=== PATIENT | female | born 2000 | race Caucasian/White ===

== ENCOUNTER 2022-06-03 23:41 | Emergency (ER) | payer OTHER ==
[~2022-06-03] VITALS: Ht 157.5 cm; Wt 63.0 kg
[2022-06-03 23:50] VITALS: BP 134/70
--- NOTE | 2022-06-03 23:53 | NUR ---
TO LOBBY A/W BED AMBULATORY
--- NOTE | 2022-06-04 00:35 | NUR ---
PT TAKEN TO BED 3
[2022-06-04 00:48] LABS: APPEARANCE,URINE CLOUDY (CLEAR); BILIRUBIN,URINE NEGATIVE (NEGATIVE); BLOOD, URINE NEGATIVE (NEGATIVE); COLOR,URINE YELLOW (YELLOW); LEUKOCYTE ESTERASE ,URINE TRACE (NEGATIVE); NITRITE, URINE NEGATIVE (NEGATIVE); UGLUCOSE NEGATIVE (NEGATIVE)
[2022-06-04 00:49] LABS: BASOPHILS % (AUTO) 0.2 % (0.0-2.0); EOSINOPHILS # (AUTO) 0.1 K/uL (0-0.4); HEMATOCRIT 38.7 % (36-48); HEMOGLOBIN 13.1 g/dL (12.0-16.0); LYMPHOCYTES # (AUTO) 1.6 K/uL (2.5-16.5); LYMPHOCYTES % (AUTO) 13.3 % (20.5-51.1); MEAN CORPUSCULAR HEMOGLOBIN 32 pg (27-31); MEAN CORPUSCULAR HGB CONC 34 g/dL (33-37); MEAN CORPUSCULAR VOLUME 93.1 fL (80-94); MONOCYTES # (AUTO) 0.8 K/uL (0.8-1.0); MONOCYTES % (AUTO) 6.3 % (1.7-9.3); NEUTROPHILS # (AUTO) 9.8 K/uL (1.8-7.7); NEUTROPHILS % (AUTO) 79.2 % (42.2-75.2); PLATELET COUNT (AUTO) 217 K/uL (140-450); RED BLOOD CELL COUNT(AUTO) 4.16 MIL/uL (4.20-5.40); RED CELL DISTRIBUTION WIDTH 13.3 % (11.6-13.7); WHITE BLOOD COUNT (AUTO) 12.3 K/uL (4.8-10.8)
--- NOTE | 2022-06-04 00:53 | NUR ---
Patient lying in bed, A/Ox4, chest rise and fall symmetrical, no c/o pain or s/s of distress, on monitor.
[2022-06-04 00:59] LABS: RBC,URINE 0-5 /HPF (0-5); WBC,URINE 0-5 /HPF (0-5)
--- NOTE | 2022-06-04 00:59 | NUR ---
Dr. Paul examining patient.
[2022-06-04 01:17] LABS: ALBUMIN 3.9 g/dL (3.4-5.0); ANION GAP 13.2 (8-16); CARBON DIOXIDE 28.5 mmol/L (21-32); CREATININE 0.8 mg/dL (0.6-1.3); POTASSIUM 3.7 mmol/L (3.5-5.1); TOTAL BILIRUBIN 0.5 mg/dL (0.0-1.0)
--- NOTE | 2022-06-04 02:55 | NUR ---
Patient lying in bed, A/Ox4, chest rise and fall symmetrical, no s/s of distress, on monitor.
[2022-06-04] MEDS ORDERED: ALUMINUM HYD/MAG/SIMETHICONE 30 ML UDC PO ONE (03:05)
[2022-06-04] MEDS ORDERED: ONDANSETRON 4 MG ODT PO ONE (03:05)
[2022-06-04] MEDS ORDERED: FAMOTIDINE 20 MG TAB PO ONE (03:05)
[2022-06-04] MEDS ORDERED: CEPH-588 PO (03:21)
[2022-06-04] MEDS ORDERED: SUCR1TAB35 PO (03:21)
[2022-06-04] MEDS ORDERED: FAMO-90 PO (03:21)
--- NOTE | 2022-06-04 03:31 | NUR ---
Patient lying in bed, alert, chest rise and fall symmetrical, no c/o pain or s/s of distress, on monitor.
[2022-06-04 03:40] VITALS: BP 124/68
== END 2022-06-04 03:41 | disposition home or self-care (01) ==
LOC: MED 23:41
DX: R10.30 Lower abdominal pain, unspecified (principal); R11.0 Nausea; Z79.899 Other long term (current) drug therapy
CPT/HCPCS: 36415; 76705; 80053; 81001; 81025; 83690; 85025; 87086; 99284; Q0092; Q0162

== ENCOUNTER 2022-08-28 15:35 | Emergency (ER) | payer OTHER ==
[~2022-08-28] VITALS: Ht 157.5 cm; Wt 64.9 kg
[~2022-08-28 15:35] MED LIST: CEPH-588 PO; FAMO-90 PO; SUCR1TAB35 PO
[2022-08-28 15:41] VITALS: BP 118/75
[2022-08-28] MEDS ORDERED: DEXAMETHASONE 10 MG/ML VIAL IM ONE (16:00)
[2022-08-28] MEDS ORDERED: IBUPROFEN 600 MG TAB PO ONE (16:00)
--- NOTE | 2022-08-28 16:38 | NUR ---
21/F PRESENTS TO ED WITH C/O SORE THROAT X3 DAYS, PATIENT REPORTS WAKING UP WITH THE PAIN, DENIES TAKING MEDS OR RECENT SICK CONTACTS. PATIENT DENIES N/V/D, FEVERS, COUGH.
[2022-08-28] MEDS ORDERED: IBUP-2213 PO (16:40)
[2022-08-28] MEDS ORDERED: AMOX1TAB8 PO (16:40)
[2022-08-28] MEDS ORDERED: BENZ-300 PO (16:40)
--- NOTE | 2022-08-28 16:47 | NUR ---
Patient discharged with v/s stable. Written and verbal after care instructions given and explained. Patient alert, oriented and verbalized understanding of instructions. Ambulatory with steady gait. All questions addressed prior to discharge. ID band removed. Patient advised to follow up with PMD. Rx of MOTRIN, CEPACOL LOZENGE, AMOX/CLAV [id number] given. Patient educated on indication of medication including possible reaction and side effects. Opportunity to ask questions provided and answered.
== END 2022-08-28 16:46 | disposition home or self-care (01) ==
LOC: MED 15:35
DX: J02.8 Acute pharyngitis due to other specified organisms (principal); B97.89 Other viral agents as the cause of diseases classified elsewhere
CPT/HCPCS: 96372; 99283; J1100

== ENCOUNTER 2023-01-10 17:55 | Emergency (ER) | payer OTHER ==
[~2023-01-10] VITALS: Ht 157.5 cm; Wt 63.5 kg
[~2023-01-10 17:55] MED LIST changes: +AMOX1TAB8 PO; +BENZ-300 PO; +IBUP-2213 PO
[2023-01-10 18:06] VITALS: BP 104/54; PULSE 94; RESP 17; TEMP 97.8; O2SAT 98
[2023-01-10] MEDS ORDERED: IBUP-2213 PO (18:28)
[2023-01-10] MEDS ORDERED: AMOX1TAB8 PO (18:28)
[2023-01-10] MEDS ORDERED: BENZ-300 PO (18:28)
[2023-01-10 18:34] VITALS: BP 104/54; PULSE 94; RESP 17; TEMP 97.8; O2SAT 98
== END 2023-01-10 18:34 | disposition home or self-care (01) ==
LOC: MED 17:55
DX: J02.8 Acute pharyngitis due to other specified organisms (principal); B96.89 Other specified bacterial agents as the cause of diseases classified elsewhere; Z79.899 Other long term (current) drug therapy
CPT/HCPCS: 87081; 99283

== ENCOUNTER 2023-01-19 21:17 | Emergency (ER) | payer OTHER ==
[~2023-01-19] VITALS: Ht 157.5 cm; Wt 64.9 kg
[2023-01-19 21:46] VITALS: BP 110/68; PULSE 76; RESP 20; TEMP 98; O2SAT 98
[2023-01-19] MEDS ORDERED: KETOROLAC 30 MG/ML VIAL IM ONE (22:10)
[2023-01-19] MEDS ORDERED: ONDANSETRON 4 MG ODT PO ONE (22:15)
[2023-01-19] MEDS ORDERED: ONDA-188 PO (22:19)
[2023-01-19] MEDS ORDERED: PRED20TA5 PO (22:19)
[2023-01-19] MEDS ORDERED: SUD30 PO (22:19)
[2023-01-19] MEDS ORDERED: PROM118S5 PO (22:19)
[2023-01-19] MEDS ORDERED: LIDO15SO4 PO (22:19)
== END 2023-01-19 22:37 | disposition home or self-care (01) ==
LOC: MED 21:17
DX: J06.9 Acute upper respiratory infection, unspecified (principal); J03.90 Acute tonsillitis, unspecified; Z79.899 Other long term (current) drug therapy
CPT/HCPCS: 96372; 99283; J1885; Q0162

== ENCOUNTER 2023-06-02 19:04 | Emergency (ER) | payer OTHER ==
[~2023-06-02] VITALS: Ht 157.5 cm; Wt 64.9 kg
[~2023-06-02 19:04] MED LIST changes: +LIDO15SO4 PO; +ONDA-188 PO; +PRED20TA5 PO; +PROM118S5 PO; +SUD30 PO
[2023-06-02 19:21] VITALS: BP 96/62; PULSE 65; RESP 20; TEMP 98.7; O2SAT 98
[2023-06-02 20:22] LABS: BASOPHILS % (AUTO) 0.2 % (0.0-2.0); EOSINOPHILS # (AUTO) 0.1 K/uL (0-0.4); HEMATOCRIT 40.8 % (36-48); HEMOGLOBIN 14.2 g/dL (12.0-16.0); LYMPHOCYTES # (AUTO) 1.3 K/uL (2.5-16.5); LYMPHOCYTES % (AUTO) 20.1 % (20.5-51.1); MEAN CORPUSCULAR HEMOGLOBIN 32 pg (27-31); MEAN CORPUSCULAR HGB CONC 35 g/dL (33-37); MEAN CORPUSCULAR VOLUME 90.5 fL (80-94); MONOCYTES # (AUTO) 0.6 K/uL (0.8-1.0); MONOCYTES % (AUTO) 9.2 % (1.7-9.3); NEUTROPHILS # (AUTO) 4.5 K/uL (1.8-7.7); NEUTROPHILS % (AUTO) 69.5 % (42.2-75.2); PLATELET COUNT (AUTO) 227 K/uL (140-450); RED BLOOD CELL COUNT(AUTO) 4.51 MIL/uL (4.20-5.40); RED CELL DISTRIBUTION WIDTH 12.3 % (11.6-13.7); WHITE BLOOD COUNT (AUTO) 6.5 K/uL (4.8-10.8)
[2023-06-02 20:26] LABS: APPEARANCE,URINE CLEAR (CLEAR); BILIRUBIN,URINE NEGATIVE (NEGATIVE); BLOOD, URINE 1+ (NEGATIVE); COLOR,URINE YELLOW (YELLOW); LEUKOCYTE ESTERASE ,URINE TRACE (NEGATIVE); NITRITE, URINE NEGATIVE (NEGATIVE); PROTEIN,URINE NEGATIVE (NEGATIVE); UGLUCOSE NEGATIVE (NEGATIVE); UROBILINOGEN,URINE 0.2 EU/dL (0.2 - 1)
[2023-06-02 20:38] LABS: BACTERIA,URINE FEW /HPF (None Seen); SQUAMOUS EPITHELIAL CELL,UR 4-10 (MOD) /LPF (0-3 (FEW))
[2023-06-02 20:53] LABS: ALBUMIN 4.1 g/dL (3.4-5.0); ANION GAP 13.9 (8-16); CREATININE 0.7 mg/dL (0.6-1.3); POTASSIUM 4.9 mmol/L (3.5-5.1); TOTAL BILIRUBIN 0.5 mg/dL (0.0-1.0)
[2023-06-02] MEDS ORDERED: KETOROLAC 30 MG/ML VIAL IM ONE (22:50)
[2023-06-02] MEDS ORDERED: PHENAZOPYRIDINE 100 MG TAB PO ONE (22:50)
[2023-06-03] MEDS ORDERED: NAPR-54 PO (04:43)
[2023-06-03] MEDS ORDERED: CEPH-588 PO (04:43)
[2023-06-03 04:53] VITALS: BP 123/72; PULSE 74; RESP 20; TEMP 98.7; O2SAT 98
== END 2023-06-03 04:53 | disposition home or self-care (01) ==
LOC: MED 19:04
DX: N83.202 Unspecified ovarian cyst, left side (principal); N39.0 Urinary tract infection, site not specified; Z79.1 Long term (current) use of non-steroidal anti-inflammatories (NSAID); Z79.2 Long term (current) use of antibiotics; Z79.899 Other long term (current) drug therapy
CPT/HCPCS: 36415; 74176; 80053; 81001; 81025; 83690; 85025; 87086; 96372; 99285; J1885

== ENCOUNTER 2023-06-25 15:38 | Emergency (ER) | payer OTHER ==
[~2023-06-25] VITALS: Ht 157.5 cm; Wt 64.9 kg
[~2023-06-25 15:38] MED LIST changes: +NAPR-54 PO
[2023-06-25 15:46] VITALS: BP 117/73; PULSE 117; RESP 20; TEMP 100.6; O2SAT 97
[2023-06-25] MEDS ORDERED: IBUPROFEN 600 MG TAB PO ONE (16:10)
[2023-06-25] MEDS ORDERED: DEXAMETHASONE 4 MG/ML VIAL IM ONE (16:10)
[2023-06-25] MEDS ORDERED: cefTRIAXone 1,000 MG in DEXT 5% MINI-BAG PLUS 50 ML IV ONE (16:20)
[2023-06-25] MEDS ORDERED: NACL 0.9% 1,000 ML IV SCH (16:20)
[2023-06-25] MEDS ORDERED: ONDANSETRON 4 MG/2 ML VIAL IVP ONE (16:20)
[2023-06-25 16:26] LABS: FLU A ANTIGEN negative (NEGATIVE); FLU B ANTIGEN negative (NEGATIVE)
[2023-06-25] MEDS ORDERED: cefTRIAXone 1,000 MG VIAL ONE (16:42)
[2023-06-25 16:43] LABS: BASOPHILS % (AUTO) 0.2 % (0.0-2.0); EOSINOPHILS % (AUTO) 0.1 % (0.0-4.0); HEMATOCRIT 36.1 % (36-48); HEMOGLOBIN 12.7 g/dL (12.0-16.0); LYMPHOCYTES # (AUTO) 1.2 K/uL (2.5-16.5); LYMPHOCYTES % (AUTO) 8.1 % (20.5-51.1); MEAN CORPUSCULAR HEMOGLOBIN 32 pg (27-31); MEAN CORPUSCULAR HGB CONC 35 g/dL (33-37); MEAN CORPUSCULAR VOLUME 90.4 fL (80-94); MONOCYTES # (AUTO) 0.8 K/uL (0.8-1.0); MONOCYTES % (AUTO) 5.5 % (1.7-9.3); NEUTROPHILS # (AUTO) 12.4 K/uL (1.8-7.7); NEUTROPHILS % (AUTO) 86.1 % (42.2-75.2); PLATELET COUNT (AUTO) 211 K/uL (140-450); RED CELL DISTRIBUTION WIDTH 12.9 % (11.6-13.7); WHITE BLOOD COUNT (AUTO) 14.4 K/uL (4.8-10.8)
[2023-06-25 16:49] LABS: ANION GAP 10.1 (8-16); CALCIUM 8.6 mg/dL (8.5-10.1); CARBON DIOXIDE 27.5 mmol/L (21-32); POTASSIUM 3.6 mmol/L (3.5-5.1)
[2023-06-25] MEDS ORDERED: AMOX1TAB8 PO (17:11)
[2023-06-25 17:55] VITALS: BP 109/68; PULSE 97; RESP 14; TEMP 99.6
[2023-06-25 18:51] VITALS: O2SAT 97
== END 2023-06-25 17:55 | disposition home or self-care (01) ==
LOC: MED 15:38
DX: J02.0 Streptococcal pharyngitis (principal); Z20.822 Contact with and (suspected) exposure to COVID-19; Z79.899 Other long term (current) drug therapy
CPT/HCPCS: 36415; 80048; 85025; 86308; 87081; 87426; 87804; 96365; 96372; 96375; 99284; J0696; J1100; J2405; J7030

== ENCOUNTER 2023-07-22 14:35 | Emergency (ER) | payer OTHER ==
[~2023-07-22] VITALS: Ht 157.5 cm; Wt 64.9 kg
[2023-07-22 14:54] VITALS: BP 122/74; PULSE 61; RESP 18; TEMP 98.3; O2SAT 96
[2023-07-22 15:41] LABS: BASOPHILS % (AUTO) 0.5 % (0.0-2.0); EOSINOPHILS % (AUTO) 0.8 % (0.0-4.0); HEMATOCRIT 40.3 % (36-48); HEMOGLOBIN 14.1 g/dL (12.0-16.0); LYMPHOCYTES # (AUTO) 1.8 K/uL (2.5-16.5); LYMPHOCYTES % (AUTO) 30.1 % (20.5-51.1); MEAN CORPUSCULAR HEMOGLOBIN 32 pg (27-31); MEAN CORPUSCULAR HGB CONC 35 g/dL (33-37); MEAN CORPUSCULAR VOLUME 90.4 fL (80-94); MONOCYTES # (AUTO) 0.5 K/uL (0.8-1.0); MONOCYTES % (AUTO) 8.4 % (1.7-9.3); NEUTROPHILS # (AUTO) 3.7 K/uL (1.8-7.7); NEUTROPHILS % (AUTO) 60.2 % (42.2-75.2); PLATELET COUNT (AUTO) 267 K/uL (140-450); RED BLOOD CELL COUNT(AUTO) 4.45 MIL/uL (4.20-5.40); RED CELL DISTRIBUTION WIDTH 13.2 % (11.6-13.7); WHITE BLOOD COUNT (AUTO) 6.1 K/uL (4.8-10.8)
[2023-07-22] MEDS: ALUMINUM HYD/MAG/SIMETHICONE 30 ML UDC PO ONE (15:51)
[2023-07-22] MEDS: diphenhydrAMINE 50 MG/ML VIAL IVP ONE ×3 (15:54→16:53)
[2023-07-22] MEDS: METOCLOPRAMIDE 10 MG/2 ML INJ VIAL IVP ONE (15:55)
[2023-07-22] MEDS: FAMOTIDINE 20 MG/2 ML VIAL IVP ONE (15:56)
[2023-07-22 16:03] LABS: ANION GAP 9.4 (8-16); CREATININE 0.7 mg/dL (0.6-1.3); POTASSIUM 4.4 mmol/L (3.5-5.1)
[2023-07-22] MEDS: NACL 0.9% 1,000 ML IV ONE (16:05)
[2023-07-22 16:09] LABS: ALBUMIN 4.1 g/dL (3.4-5.0); BILIRUBIN,DIRECT 0.2 mg/dL (0.0-0.3); TOTAL BILIRUBIN 0.7 mg/dL (0.0-1.0); TOTAL PROTEIN, SERUM 9.2 g/dL (6.4-8.2)
[2023-07-22] MEDS ORDERED: ONDA-188 SL (16:55)
[2023-07-22] MEDS ORDERED: FAMO-92 PO (16:55)
[2023-07-22 17:35] VITALS: BP 122/73; PULSE 80; O2SAT 98
== END 2023-07-22 17:35 | disposition home or self-care (01) ==
LOC: MED 14:35
DX: R10.13 Epigastric pain (principal); R11.2 Nausea with vomiting, unspecified; Z79.899 Other long term (current) drug therapy
CPT/HCPCS: 36415; 80048; 80076; 81002; 81025; 83690; 85025; 96361; 96374; 96375; 99284; J1200; J2765; J3490; J7030

== ENCOUNTER 2023-10-04 15:21 | Emergency (ER) | payer OTHER ==
[~2023-10-04] VITALS: Ht 157.5 cm; Wt 65.8 kg
[~2023-10-04 15:21] MED LIST changes: +FAMO-92 PO; +LIDO15SO10 PO; -LIDO15SO4 PO; +NAPR-337 PO; -NAPR-54 PO; +ONDA-188 SL; +SUCR-34 PO; -SUCR1TAB35 PO
[2023-10-04 15:32] VITALS: BP 117/62; PULSE 64; RESP 16; TEMP 98; O2SAT 98
[2023-10-04] MEDS: IBUPROFEN 600 MG TAB PO ONE (16:22)
[2023-10-04] MEDS ORDERED: IBUP-2213 PO (16:55)
[2023-10-04 17:08] VITALS: BP 117/62; PULSE 64; RESP 16; TEMP 98; O2SAT 98
== END 2023-10-04 17:08 | disposition home or self-care (01) ==
LOC: MED 15:21
DX: S83.095A Other dislocation of left patella, initial encounter (principal); S83.8X2A Sprain of other specified parts of left knee, initial encounter; Z88.8 Allergy status to other drugs, medicaments and biological substances; Z79.899 Other long term (current) drug therapy; X58.XXXA Exposure to other specified factors, initial encounter; Y93.89 Activity, other specified; Y92.89 Other specified places as the place of occurrence of the external cause; Y99.8 Other external cause status; W18.30XA Fall on same level, unspecified, initial encounter
CPT/HCPCS: 29505; 73562; 99283; Q0092